=== PATIENT | female | born 1935 | race Caucasian/White ===

== ENCOUNTER 2017-09-07 08:49 | Emergency (ER) | payer MEDICARE, BC ==
[2017-09-07] MEDS ORDERED: HYDROcodone/Acetaminophen 5/325 mg Tablet ONE (09:35)
[2017-09-07] MEDS ORDERED: Donepezil HCl 5 MG TAB PO ONE (10:00)
--- NOTE | 2017-09-07 10:35 | RAD ---
RIGHT FEMUR 2 VIEWS: Date: 09/07/17 HISTORY: 82-year-old female with pain following a fall yesterday. FINDINGS: Bone demineralization. Right hip joint arthrosis. Right knee arthrosis. No acute femoral fracture. IMPRESSION: No acute femoral fracture. POS: [facility]
--- NOTE | 2017-09-07 10:40 | RAD ---
FRONTAL RADIOGRAPH OF PELVIS: Date: 09/07/17 COMPARISON: 10/21/16. HISTORY: Fall yesterday, pain and bruising. FINDINGS: The patient is rotated to the left, limiting assessment of the sacrum and sacroiliac joints. Fractur e deformities are noted involving the region of the superior and inferior pubic rami on the right me dially, as seen on the 10/21/16 exam. There is callus formation suggesting healing, but fracture alisson es are still seen, consistent with incomplete healing since the 10/21/16 exam. No definite acute fra cture seen. IMPRESSION: Healing fractures within the right hemipelvis as detailed above. No discrete acute fracture is seen on this exam. If symptoms persist and there is clinical concern for radio-occult fracture, cross-sec tional imaging advised. POS: [facility]
== END 2017-09-07 11:24 | disposition home or self-care (01) ==
LOC: ERS 08:49
DX: S30.0XXA Contusion of lower back and pelvis, initial encounter (principal); M80.08XA Age-related osteoporosis with current pathological fracture, vertebra(e), initial encounter for fracture; F02.81 Dementia in other diseases classified elsewhere, unspecified severity, with behavioral disturbance; G30.9 Alzheimer's disease, unspecified; F32.9 Major depressive disorder, single episode, unspecified; G47.00 Insomnia, unspecified; J45.909 Unspecified asthma, uncomplicated; F41.9 Anxiety disorder, unspecified; Z79.82 Long term (current) use of aspirin; Z79.899 Other long term (current) drug therapy; W01.0XXA Fall on same level from slipping, tripping and stumbling without subsequent striking against object, initial encounter
CPT/HCPCS: 72170

== ENCOUNTER 2017-09-28 15:25 | Outpatient (CLI) | payer MEDICARE, BC ==
--- NOTE | 2017-09-28 16:24 | MRI ---
MRI BRAIN WITHOUT IV CONTRAST: Date: 09/28/17 HISTORY: Alzheimer's dementia. FINDINGS: There are scattered patchy and confluent areas of [id number] FLAIR and T2-weighted signal intensity s een in the periventricular and subcortical white matter which are nonspecific but likely reflective o f severe chronic small vessel ischemic changes. There is no evidence of an acute infarction. There is diffuse cerebral volume loss. Septum pellucidum and third ventricle are on the midline. The ventricular system is normal in size, shape, and position for the degree of sulcal atrophy. Appropriate flow-voids are demonstrated at the base of the brain. [place] lenses are absent. Paranasal sinuses are clear. There is a bilobed low signal intensity mass seen within the dermis in the right frontoparietal regio n near the vertex which overlies the region of the coronal suture. This may represent a sebaceous cys t given location and there is also a punctate low signal intensity focus within this bilobed mass whi ch may represent a calcification. IMPRESSION: 1. No acute intracranial abnormality is demonstrated. 2. Moderate to severe chronic small vessel ischemic changes. 3. Diffuse cerebral volume loss. 4. Bilobed mass in the dermis just above the level of the coronal suture on the right which may repr esent a sebaceous cyst. Correlation with physical examination is recommended. POS: [facility]
== END 2017-09-28 15:26 | disposition home or self-care (01) ==
LOC: MRI 15:25
PROVIDERS: ATTEND Psychiatry & Neurology Neurology
DX: G30.9 Alzheimer's disease, unspecified (principal); F02.80 Dementia in other diseases classified elsewhere, unspecified severity, without behavioral disturbance, psychotic disturbance, mood disturbance, and anxiety; R22.0 Localized swelling, mass and lump, head
CPT/HCPCS: 70551

== ENCOUNTER 2017-10-06 11:59 | Outpatient (CLI) | payer MEDICARE, BC ==
--- NOTE | 2017-10-06 16:49 | SJPRAD ---
RADIOGRAPH RIGHT RIBS 4 VIEWS: Date: 10/06/17 HISTORY: 82-year-old female with persistent post-traumatic right rib pain after fall 2 weeks ago. FINDINGS: There is diffuse osteopenia. Severe levoscoliosis of lumbar spine and compensatory dextroscoliosis of lower thoracic spine. Loss of height of two levels of the spine at the thoracolumbar junction, incom pletely imaged, and of indeterminate age. These are probably old, and the appearance is similar morgan red to previous lumbar spine radiograph of 07/16/17. Mildly displaced fractures of the lateral aspects of the right 5th, 6th, 7th, and 8th ribs. Very angu lated fractures of distal anterolateral aspects of right 8th, 9th, and 10th ribs. Diffuse osteopenia. IMPRESSION: 1. Subacute, traumatic, displaced, multiple right rib fractures. 2. S-shaped somewhat severe scoliosis. 3. Compression fractures of two vertebral bodies at the thoracolumbar junction, probably old. POS: [facility]
== END 2017-10-06 12:00 | disposition home or self-care (01) ==
LOC: MWLC RAD 11:59
PROVIDERS: ATTEND Family Medicine
DX: R07.9 Chest pain, unspecified (principal); M41.9 Scoliosis, unspecified; M48.56XD Collapsed vertebra, not elsewhere classified, lumbar region, subsequent encounter for fracture with routine healing

== ENCOUNTER 2018-07-06 13:12 | Outpatient (CLI) | payer MEDICARE, BC ==
--- NOTE | 2018-07-06 14:03 | RAD ---
PA AND LATERAL CHEST RADIOGRAPH: Date: 07-06-18 History: Dyspnea. Comparison: 05-25-17 FINDINGS: Again noted is mild elevation of the left hemidiaphragm with prominent gaseous distention of loops of bowel beneath the left hemidiaphragm. Small hiatal hernia is present. The cardiac silhouette and pul monary vasculature are within normal limits. Remote right sided rib fractures are present. [place] scr ews overlie the left proximal humerus. There is left glenohumeral osteoarthropathy present. Prominent degenerative changes are seen in the spine and there is S-shaped scoliotic curvature of the thoracol umbar spine with prominent degenerative changes present. IMPRESSION: 1. Prominent gaseous distention of loops of bowel within the upper abdomen with elevation left hemidi aphragm. 2. Small hiatal hernia. 3. No acute cardiopulmonary process. 4. Remote right sided rib fractures. 5. S-shaped scoliotic curvature of the thoracolumbar spine with prominent degenerative changes presen t. POS: [facility]
== END 2018-07-06 13:13 | disposition home or self-care (01) ==
LOC: RAD 13:12
PROVIDERS: ATTEND Internal Medicine Pulmonary Disease
DX: R06.00 Dyspnea, unspecified (principal); J98.6 Disorders of diaphragm; K63.89 Other specified diseases of intestine; K44.9 Diaphragmatic hernia without obstruction or gangrene; M41.85 Other forms of scoliosis, thoracolumbar region; M47.895 Other spondylosis, thoracolumbar region
CPT/HCPCS: 71046

== ENCOUNTER 2019-04-11 18:04 | Inpatient (IN) | payer MEDICARE, BC ==
[2019-04-11 18:44] LABS: #Monocytes 0.5 thou/uL (0.11-0.59); #Neutrophils 9.3 thou/uL (1.40-6.50); %Basophils 0.3 % (0.0-1.0); %Eosinophils 0.3 % (0.0-10.0); %Lymphocytes 8.9 % (21.0-51.0); %Monocytes 4.4 % (0.0-10.0); %Neutrophils 86.1 % (42.0-75.0); Hemoglobin 11.8 g/dL (12.0-16.0); Mean Corpuscular HGB CONC 31.1 g/dL (32.0-36.0); Mean Corpuscular Hemoglobin 27.3 pg (27.0-31.0); Mean Corpuscular Volume 87.8 fL (78.0-98.0); Mean Platelet Volume 8.3 fL (7.4-10.4); Platelet Count 203 thou/uL (130-400); RBC Distribution Width 14.1 % (11.5-14.5); Red Blood Cell (RBC) Count 4.33 mill/uL (4.20-5.40); White Blood Cell (WBC) Count 10.8 thou/uL (4.8-10.8)
[2019-04-11 19:06] LABS: ALT (SGPT) 11 U/L (8-55); AST (SGOT) 16 U/L (5-34); Albumin 3.8 g/dL (3.4-4.8); Alkaline Phosphatase 79 U/L (40-150); Anion Gap 13 mmol/L (10-20); BUN (Urea Nitrogen) 14 mg/dL (9.8-20.1); Bilirubin, Total 0.3 mg/dL (0.2-1.2); CK (CPK) 47 U/L (29-168); Calc. Creatinine Clearance 0 mL/min (70-130); Calcium 9.3 mg/dL (7.8-10.44); Carbon Dioxide 25 mmol/L (23-31); Chloride 106 mmol/L (98-107); Estimated GFR-MDRD 71; Globulin 3.2 g/dL (2.4-3.5); Glucose 104 mg/dL (83-110); Potassium 3.7 mmol/L (3.5-5.1); Sodium 140 mmol/L (136-145)
[2019-04-11 19:16] LABS: Bilirubin Negative (Negative); Blood, Urine Moderate (Negative); Clarity TURBID (Clear); Glucose, Urine (Dipstick) Negative (Negative); Leukocyte Large (Negative); Nitrite Positive (Negative); Protein, Urine (Dipstick) 100 mg/dL (Neg-Trace); Specific Gravity, Urine 1.014 (1.002-1.036); pH, Urine 6.5 (5.0-9.0)
--- NOTE | 2019-04-11 19:25 | RAD ---
EXAM: CHEST ONE VIEW HISTORY: Cough COMPARISON: 07/06/2018 FINDINGS: The cardiac silhouette and pulmonary vasculature is within normal limits. The lungs are clear. There is mild focal eventration of the right hemidiaphragm. Hiatal hernia was present on prior study, but this is not well delineated on today's exam. There is gas beneath the hemidiaphragm in the epigastric region. This is most likely related to gas within a loop of bowel. However, if the patient has abdominal tenderness, an upright PA chest x-ray is recommended for further evaluation of this finding . Osteopenia is present. Postsurgical changes left shoulder are again seen. Each humeral head does appear to be high riding. Chronic rotator cuff tears are a possibility. Scoliosis thoracolumbar spine is present. IMPRESSION: 1. No acute cardiopulmonary process. 2. Gas beneath the hemidiaphragm within the central upper abdomen probably related to gas within a lo op of bowel. However, if the patient has abdominal tenderness or findings suggestive of an acute abdomen, upright PA chest x-ray is recommended for further evaluation. 3. Osteopenia.
[2019-04-11 19:31] LABS: Bacteria/HPF 2+ HPF (None Seen); Hyaline Casts/LPF NONE SEEN LPF (0-3 Hyaline)
[2019-04-11] MEDS ORDERED: cefTRIAXone\\ROCEPHIN 1 GM VIAL ONE (19:37)
[2019-04-11] MEDS ORDERED: Sodium Chloride 0.9% 100 ML ONE (20:24)
[2019-04-11 22:13] VITALS: BMI 23.3
[2019-04-12 00:57] LABS: Troponin I 0.052 ng/mL (< 0.028)
[2019-04-12 04:36] LABS: Troponin I 0.047 ng/mL (< 0.028)
[2019-04-12] MEDS ORDERED: Acetaminophen 325 MG TAB PO PRN (04:54)
[2019-04-12] MEDS ORDERED: cloNIDine 0.1 MG TAB PO PRN (04:54)
[2019-04-12] MEDS ORDERED: Ondansetron PF 4 MG/2 ML Vial IVP PRN (04:54)
[2019-04-12] MEDS ORDERED: hydrALAZINE 20 MG/ML VIAL SLOW IVP PRN (04:54)
[2019-04-12] MEDS ORDERED: Ondansetron ODT 4 MG TAB PO PRN (04:54)
[2019-04-12] MEDS ORDERED: Polyethylene Glycol 3350 17 GM Packet PO PRN (04:55)
[2019-04-12] MEDS ORDERED: Meloxicam 15 MG TAB PO PRN (04:55)
[2019-04-12] MEDS ORDERED: Senokot 8.6 MG TAB PO PRN (04:55)
[2019-04-12] MEDS ORDERED: PROVENTIL INHALER 6.7 G (200 INHALATIONS) INH PRN (04:55)
[2019-04-12] MEDS ORDERED: Guaifenesin DM 100-10/5 ML UDCUP PO PRN (05:02)
--- NOTE | 2019-04-12 05:31 | HP ---
CHIEF COMPLAINT: Shortness of breath and fever. HISTORY OF PRESENT ILLNESS: The history of present illness is very limited as the patient has advanced dementia, and there is no family at the bedside. Ms. Gillespie resides at the [facility] and she was sent over by the staff due to concerns for cough and fever. She also appeared to be short of breath and it appeared as if her oxygen saturations had been lower than usual. When she was evaluated in the ER, a chest x-ray was done, which did not show any significant infiltrates; however, urinalysis showed findings consistent with urinary tract infection and she was also found to be febrile with a temperature of 101.8, and she is being admitted for further treatment. The patient is currently lying in bed. She looks comfortable. She is awake and talking. She has advanced dementia and cannot tell me any additional history. She does say that she is not in pain. She also tells me that she does not feel short of breath, but she is noted to be occasionally coughing with a productive-sounding cough. REVIEW OF SYSTEMS: Unobtainable due to advanced dementia. PAST MEDICAL HISTORY: The previous history is taken from consultation by Dr. Tyson on November 20, 2015, and includes degenerative joint disease, restless legs syndrome, hypertension, osteoporosis, and Alzheimer's dementia. PAST SURGICAL HISTORY: She has had a tonsillectomy, appendectomy, hiatal hernia, carotid endarterectomy, and rotator cuff repair. She is status post left total hip replacement. ALLERGIES: TO WARFARIN. FAMILY HISTORY: Unknown. SOCIAL HISTORY: She is a nonsmoker and nondrinker. She resides at the [facility]. We will need to verify her code status. CURRENT MEDICATIONS: Her current medications are taken from the hospital records and include; 1. Tylenol 1000 mg q.6. 2. Albuterol inhaler 2 puffs q.6 as needed. 3. Aspirin 81 mg daily. 4. Calcium phosphate plus vitamin D 1 tablet daily. 5. Klonopin 0.5 mg at bedtime. 6. Escitalopram 10 mg daily. 7. Gabapentin 200 mg at bedtime. 8. Loperamide 2 mg as needed. 9. Melatonin 3 mg at bedtime. 10. Meloxicam 15 mg daily. 11. Namenda 10 mg twice daily. 12. Mirtazapine 15 mg at bedtime. 13. Oxybutynin 5 in the morning and 10 mg in the evening. 14. Pantoprazole 40 mg p.o. at bedtime. 15. MiraLAX 17 g daily. 16. Pramipexole 0.5 mg daily and one in the evening. 17. Dextromethorphan 5 mg q.6. 18. Senna 8.6 mg daily. PHYSICAL EXAMINATION: GENERAL: She is alert, but disoriented. She appears in no acute distress. VITAL SIGNS: Blood pressure was 165/82, heart rate 96, respiratory rate of 20, temperature was 100, and O2 sats 97% on room air. HEENT: Pupils are equal, round, and reactive to light. Extraocular muscles are intact. Her sclerae are anicteric. Throat, no erythema, no exudates. NECK: No adenopathy, no bruits. LUNGS: She has bilateral rales in both lung verdin. No wheezing. No rhonchi. CARDIOVASCULAR: She has a normal S1 and S2. There was no S3 or S4. No murmurs, clicks or rubs. ABDOMEN: Soft, it is nontender and nondistended. Positive for bowel sounds. There is no rebound, no guarding. No organomegaly. EXTREMITIES: There is no edema. NEUROLOGICAL: The exam is nonfocal. SKIN AND INTEGUMENT: There are no skin changes. No rash. LABORATORY DATA: Sodium 140, potassium 3.7, chloride is 106, CO2 is 25, BUN of 14, creatinine 0.78, glucose is 104. Troponin initially 0.28. White blood cell count is 10.8, hemoglobin 11.8, hematocrit is 38, platelet count is 200. Urinalysis shows nitrite positive, positive blood, large leukocyte esterase, 2+ bacteria. She had a chest x-ray showing no evidence of cardiomegaly. There was no infiltrates, no effusions. ASSESSMENT: This is an 83-year-old female, who was sent over by the [facility] due to; 1. Fever, cough, and hypoxia. Her chest x-ray was not revealing of any infiltrate; however, it could be that she may be mildly volume depleted and the infiltrate is not yet evident radiographically. At least she has a bronchitis as she does have a productive-sounding cough. She will be admitted and started on IV antibiotics. We will place her on azithromycin as well as Rocephin. 2. Urinary tract infection. This will be treated with Rocephin IV and await urine culture results. 3. Hypertension. Clarify and restart her home medications as well as p.r.n. medications as needed for blood pressure. 4. Dementia. This is fairly advanced. We will continue Namenda. 5. She will be placed on deep venous thrombosis and gastrointestinal prophylaxis. Job ID: [id number]
[2019-04-12] MEDS: Azithromycin 500 MG in Sodium Chloride 0.9% 250 ML 250 ML IVPB SCH (05:34)
[2019-04-12] MEDS: Pramipexole Di-HCl 0.25 MG TAB PO SCH (07:43)
[2019-04-12] MEDS: Famotidine 20 MG TAB PO SCH ×2 (07:45→20:06)
[2019-04-12] MEDS: Escitalopram Oxalate 10 mg Tablet PO SCH (07:45)
[2019-04-12] MEDS: Oxybutynin 5 MG TAB PO SCH ×2 (07:46→20:06)
[2019-04-12] MEDS: Calcium Carbonate + Vit D 1 TAB PO SCH (07:46)
[2019-04-12] MEDS: Aspirin Chewable 81 MG TAB PO SCH (07:46)
[2019-04-12 08:22] LABS: Troponin I 0.052 ng/mL (< 0.028)
[2019-04-12] MEDS ORDERED: Enoxaparin Sodium 30 MG/0.3 ML SYRINGE SC SCH (09:00)
--- NOTE | 2019-04-12 16:48 | PDOC.PN ---
- Subjective Encounter Start Date: 04/12/19 Encounter Start Time: 16:46 83 y/o female, senior living resident with demantia admitted due to worsening cough and fever and was also found to have UTI. Feeling better. Still coughing but denied sputum production. - Objective Vital Signs & Weight: Vital Signs (12 hours) Temp Pulse Resp BP Pulse Ox 04/12/19 11:41 98.8 F 89 20 161/92 H 94 L 04/12/19 08:00 97.9 F 88 18 151/80 H 94 L 04/12/19 04:54 98.8 F 92 18 168/81 H 96 Weight Weight 140 lb 8 oz I&O: 04/11/19 04/12/19 04/13/19 06:59 06:59 06:59 Intake Total 450 Balance 450 Result Diagrams: 04/11/19 18:30 04/11/19 18:30 Phys Exam - Physical Examination Constitutional: NAD afebrile HEENT: PERRLA, moist MMs Neck: no JVD, supple Respiratory: no wheezing, no rhonchi fair air entry bilaterally with some left base crackles. Cardiovascular: RRR Gastrointestinal: soft, non-tender, no distention, positive bowel sounds Musculoskeletal: no edema, pulses present Neurological: non-focal, moves all 4 limbs awake and conversational. memory lapses noted Dx/Plan (1) UTI (urinary tract infection) Status: Acute (2) Acute bronchitis Code(s): J20.9 - ACUTE BRONCHITIS, UNSPECIFIED Status: Acute (3) Dementia Code(s): F03.90 - UNSPECIFIED DEMENTIA WITHOUT BEHAVIORAL DISTURBANCE Status: Acute (4) Fever Code(s): R50.9 - FEVER, UNSPECIFIED Status: Acute (5) Demand ischemia of myocardium Code(s): I24.8 - OTHER FORMS OF ACUTE ISCHEMIC HEART DISEASE Status: Acute (6) Hypertension Code(s): I10 - ESSENTIAL (PRIMARY) HYPERTENSION Status: Acute - Plan Start mucinex -: Continue antibiotic therapy -: Await culture results -: Diet as tolerated. * .
[2019-04-12] MEDS: cefTRIAXone\\ROCEPHIN 1 GM in Sodium Chloride 0.9% 100 ML IVPB SCH (20:05)
[2019-04-12] MEDS: clonazePAM 0.5 MG TAB PO SCH (20:05)
[2019-04-12] MEDS: Gabapentin 100 MG CAP PO SCH (20:06)
[2019-04-12] MEDS: Melatonin 3 MG TAB PO SCH (20:06)
[2019-04-12] MEDS: guaiFENesin ER 600 MG TAB PO SCH (20:06)
[2019-04-12] MEDS: Pramipexole Di-HCl 1 MG TAB PO SCH (20:06)
[2019-04-12] MEDS: Mirtazapine 15 MG TAB PO SCH (20:07)
[2019-04-13] MEDS: Azithromycin 500 MG in Sodium Chloride 0.9% 250 ML 250 ML IVPB SCH (05:15)
[2019-04-13 06:13] LABS: #Eosinphils 0.2 thou/uL (0.0-0.7); #Lymphocytes 1.4 thou/uL (1.20-3.40); #Monocytes 0.6 thou/uL (0.11-0.59); #Neutrophils 3.5 thou/uL (1.40-6.50); %Basophils 0.6 % (0.0-1.0); %Eosinophils 3.5 % (0.0-10.0); %Lymphocytes 23.7 % (21.0-51.0); %Neutrophils 61.1 % (42.0-75.0); Hemoglobin 10.1 g/dL (12.0-16.0); Mean Corpuscular HGB CONC 31.1 g/dL (32.0-36.0); Mean Corpuscular Hemoglobin 27.4 pg (27.0-31.0); Mean Corpuscular Volume 88.1 fL (78.0-98.0); Mean Platelet Volume 8.4 fL (7.4-10.4); Platelet Count 179 thou/uL (130-400); RBC Distribution Width 13.9 % (11.5-14.5); Red Blood Cell (RBC) Count 3.69 mill/uL (4.20-5.40); White Blood Cell (WBC) Count 5.8 thou/uL (4.8-10.8)
[2019-04-13 06:31] LABS: Anion Gap 8 mmol/L (10-20); BUN (Urea Nitrogen) 12 mg/dL (9.8-20.1); Calc. Creatinine Clearance 63 mL/min (70-130); Calcium 8.4 mg/dL (7.8-10.44); Carbon Dioxide 28 mmol/L (23-31); Chloride 105 mmol/L (98-107); Estimated GFR-MDRD 80; Glucose 82 mg/dL (83-110); Potassium 3.2 mmol/L (3.5-5.1); Sodium 138 mmol/L (136-145)
[2019-04-13] MEDS: Oxybutynin 5 MG TAB PO SCH ×2 (08:09→19:59)
[2019-04-13] MEDS: Enoxaparin Sodium 40 MG/0.4 ML SYRINGE SC SCH (08:09)
[2019-04-13] MEDS: Famotidine 20 MG TAB PO SCH ×2 (08:09→19:58)
[2019-04-13] MEDS: Pramipexole Di-HCl 0.25 MG TAB PO SCH (08:09)
[2019-04-13] MEDS: Aspirin Chewable 81 MG TAB PO SCH (08:10)
[2019-04-13] MEDS: Calcium Carbonate + Vit D 1 TAB PO SCH (08:10)
[2019-04-13] MEDS: guaiFENesin ER 600 MG TAB PO SCH ×2 (08:10→19:58)
[2019-04-13] MEDS: Escitalopram Oxalate 10 mg Tablet PO SCH (08:10)
--- NOTE | 2019-04-13 08:56 | PDOC.PN ---
- Subjective Encounter Start Date: 04/13/19 Encounter Start Time: 14:00 Subjective: Patient with improvement in cough. No fever. No abdominal pain. - Objective MAR Reviewed: Yes Vital Signs & Weight: Vital Signs (12 hours) Temp Pulse Resp BP Pulse Ox 04/13/19 07:54 98.2 F 89 16 156/90 H 92 L 04/13/19 04:00 97.8 F 84 18 170/90 H 94 L 04/13/19 00:00 98.0 F 82 18 158/82 H 95 Weight Weight 140 lb 8 oz I&O: 04/12/19 04/13/19 04/14/19 06:59 06:59 06:59 Intake Total 1050 Balance 1050 Result Diagrams: 04/13/19 05:29 04/13/19 05:29 Phys Exam - Physical Examination Constitutional: NAD HEENT: moist MMs Respiratory: no wheezing, no rales, no rhonchi, clear to auscultation bilateral Cardiovascular: RRR, no significant murmur Gastrointestinal: soft, non-tender, positive bowel sounds Neurological: non-focal, moves all 4 limbs Psychiatric: normal affect Dx/Plan (1) UTI (urinary tract infection) Status: Acute Comment: gram neg rods in urine, on Rocephin since 04/12/19, 1/2 gram positive rods in blood, suspect contaminent (2) Acute bronchitis Code(s): J20.9 - ACUTE BRONCHITIS, UNSPECIFIED Status: Acute Comment: on Rocephin and Azithromycin (3) Demand ischemia of myocardium Code(s): I24.8 - OTHER FORMS OF ACUTE ISCHEMIC HEART DISEASE Status: Acute Comment: stable (4) Dementia Code(s): F03.90 - UNSPECIFIED DEMENTIA WITHOUT BEHAVIORAL DISTURBANCE Status: Chronic (5) Hypertension Code(s): I10 - ESSENTIAL (PRIMARY) HYPERTENSION Status: Chronic - Plan cont current plan of care, continue antibiotics, out of bed/ambulate, DVT proph w/lovenox, DVT proph w/SCDs Possibly home tomorrow if bacteria ID back * . - Discharge Day Encounter end time: 14:15
[2019-04-13] MEDS ORDERED: Potassium Chloride 20 MEQ TAB PO SCH (09:00)
[2019-04-13] MEDS: cefTRIAXone\\ROCEPHIN 1 GM in Sodium Chloride 0.9% 100 ML IVPB SCH (19:57)
[2019-04-13] MEDS: Melatonin 3 MG TAB PO SCH (19:58)
[2019-04-13] MEDS: Gabapentin 100 MG CAP PO SCH (19:58)
[2019-04-13] MEDS: clonazePAM 0.5 MG TAB PO SCH (19:58)
[2019-04-13] MEDS: Pramipexole Di-HCl 1 MG TAB PO SCH (19:59)
[2019-04-13] MEDS: Mirtazapine 15 MG TAB PO SCH (19:59)
[2019-04-14 04:37] LABS: #Eosinphils 0.3 thou/uL (0.0-0.7); #Lymphocytes 1.4 thou/uL (1.20-3.40); #Monocytes 0.6 thou/uL (0.11-0.59); #Neutrophils 3.6 thou/uL (1.40-6.50); %Basophils 0.6 % (0.0-1.0); %Eosinophils 4.3 % (0.0-10.0); %Lymphocytes 23.8 % (21.0-51.0); %Monocytes 9.7 % (0.0-10.0); %Neutrophils 61.5 % (42.0-75.0); Hemoglobin 9.9 g/dL (12.0-16.0); Mean Corpuscular HGB CONC 31.2 g/dL (32.0-36.0); Mean Corpuscular Hemoglobin 27.3 pg (27.0-31.0); Mean Corpuscular Volume 87.6 fL (78.0-98.0); Mean Platelet Volume 8.6 fL (7.4-10.4); Platelet Count 173 thou/uL (130-400); Red Blood Cell (RBC) Count 3.64 mill/uL (4.20-5.40); White Blood Cell (WBC) Count 5.9 thou/uL (4.8-10.8)
[2019-04-14 04:58] LABS: Anion Gap 10 mmol/L (10-20); BUN (Urea Nitrogen) 14 mg/dL (9.8-20.1); Calc. Creatinine Clearance 68 mL/min (70-130); Calcium 8.3 mg/dL (7.8-10.44); Carbon Dioxide 23 mmol/L (23-31); Chloride 109 mmol/L (98-107); Estimated GFR-MDRD 87; Glucose 86 mg/dL (83-110); Potassium 3.5 mmol/L (3.5-5.1); Sodium 138 mmol/L (136-145)
[2019-04-14] MEDS: Azithromycin 250 MG TAB PO SCH (06:07)
[2019-04-14] MEDS: Famotidine 20 MG TAB PO SCH ×2 (07:48→20:00)
[2019-04-14] MEDS: guaiFENesin ER 600 MG TAB PO SCH ×2 (07:48→20:00)
[2019-04-14] MEDS: Pramipexole Di-HCl 0.25 MG TAB PO SCH (07:48)
[2019-04-14] MEDS: Oxybutynin 5 MG TAB PO SCH ×2 (07:48→20:01)
[2019-04-14] MEDS: Calcium Carbonate + Vit D 1 TAB PO SCH (07:48)
[2019-04-14] MEDS: Aspirin Chewable 81 MG TAB PO SCH (07:48)
[2019-04-14] MEDS: Enoxaparin Sodium 40 MG/0.4 ML SYRINGE SC SCH (07:48)
[2019-04-14] MEDS: Escitalopram Oxalate 10 mg Tablet PO SCH (07:49)
--- NOTE | 2019-04-14 08:04 | PDOC.PN ---
- Subjective Encounter Start Date: 04/14/19 Encounter Start Time: 11:40 Subjective: Patient feeling much better. Cough improved. No Fever. No SOB. No abdominal -: pain. - Objective MAR Reviewed: Yes Vital Signs & Weight: Vital Signs (12 hours) Temp Pulse Resp BP Pulse Ox 04/14/19 07:49 98.1 F 81 18 127/78 91 L Weight Weight 140 lb 8 oz I&O: 04/13/19 04/14/19 04/15/19 06:59 06:59 06:59 Intake Total 1050 400 Balance 1050 400 Result Diagrams: 04/14/19 04:19 04/14/19 04:19 Phys Exam - Physical Examination Constitutional: NAD HEENT: moist MMs Respiratory: no wheezing, no rales, no rhonchi, clear to auscultation bilateral Cardiovascular: RRR, no significant murmur Gastrointestinal: soft, non-tender, positive bowel sounds Neurological: non-focal Psychiatric: normal affect, A&O x 3 Dx/Plan (1) UTI (urinary tract infection) Status: Acute Comment: gram neg rods in urine, on Rocephin since 04/12/19, 2/2 gram positive rods in blood now, need to await identification to see if contaminent or not, if not obvious contaminent will need to consult ID (2) Acute bronchitis Code(s): J20.9 - ACUTE BRONCHITIS, UNSPECIFIED Status: Acute Comment: on Rocephin and Azithromycin (3) Demand ischemia of myocardium Code(s): I24.8 - OTHER FORMS OF ACUTE ISCHEMIC HEART DISEASE Status: Acute Comment: stable (4) Dementia Code(s): F03.90 - UNSPECIFIED DEMENTIA WITHOUT BEHAVIORAL DISTURBANCE Status: Chronic (5) Hypertension Code(s): I10 - ESSENTIAL (PRIMARY) HYPERTENSION Status: Chronic - Plan cont current plan of care, continue antibiotics, out of bed/ambulate, DVT proph w/lovenox, DVT proph w/SCDs * . - Discharge Day Encounter end time: 11:55
[2019-04-14] MEDS: cefTRIAXone\\ROCEPHIN 1 GM in Sodium Chloride 0.9% 100 ML IVPB SCH (19:59)
[2019-04-14] MEDS: clonazePAM 0.5 MG TAB PO SCH (20:00)
[2019-04-14] MEDS: Gabapentin 100 MG CAP PO SCH (20:00)
[2019-04-14] MEDS: Melatonin 3 MG TAB PO SCH (20:01)
[2019-04-14] MEDS: Pramipexole Di-HCl 1 MG TAB PO SCH (20:01)
[2019-04-14] MEDS: Mirtazapine 15 MG TAB PO SCH (20:01)
[2019-04-15] MEDS: Azithromycin 250 MG TAB PO SCH (04:43)
[2019-04-15] MEDS: Famotidine 20 MG TAB PO SCH (08:22)
[2019-04-15] MEDS: Calcium Carbonate + Vit D 1 TAB PO SCH (08:22)
[2019-04-15] MEDS: guaiFENesin ER 600 MG TAB PO SCH (08:22)
[2019-04-15] MEDS: Pramipexole Di-HCl 0.25 MG TAB PO SCH (08:22)
[2019-04-15] MEDS: Aspirin Chewable 81 MG TAB PO SCH (08:23)
[2019-04-15] MEDS: Oxybutynin 5 MG TAB PO SCH (08:23)
[2019-04-15] MEDS: Escitalopram Oxalate 10 mg Tablet PO SCH (08:23)
[2019-04-15] MEDS: Enoxaparin Sodium 40 MG/0.4 ML SYRINGE SC SCH (08:23)
[2019-04-15 17:15] VITALS: BP 150/82; TEMP 98.2
--- NOTE | 2019-04-16 11:22 | EKG ---
Test Reason : Blood Pressure : / mmHG Vent. Rate : 096 BPM Atrial Rate : 096 BPM P-R Int : 192 ms QRS Dur : 142 ms QT Int : 380 ms P-R-T Axes : 088 -04 125 degrees QTc Int : 480 ms Sinus rhythm Left bundle branch block Abnormal ECG Stable from prior Confirmed by TERESA WOODS, RAINE Wilhelm ([id number]), editorial writer LATONYA CERVANTES ([id number]) on 04/16/2019 11:22:00 AM Referred By: Confirmed By:RAINE MOORE MD
== END 2019-04-15 17:31 | disposition home or self-care (01) | DRG 202 ==
LOC: ERS 18:04 → T4-A 22:09
PROVIDERS: ADMIT Internal Medicine; ATTEND Internal Medicine
DX: J20.9 Acute bronchitis, unspecified (principal); N39.0 Urinary tract infection, site not specified; I24.8 Other forms of acute ischemic heart disease; M19.90 Unspecified osteoarthritis, unspecified site; G25.81 Restless legs syndrome; I10 Essential (primary) hypertension; M81.0 Age-related osteoporosis without current pathological fracture; G30.9 Alzheimer's disease, unspecified; F32.9 Major depressive disorder, single episode, unspecified; B96.89 Other specified bacterial agents as the cause of diseases classified elsewhere; G47.00 Insomnia, unspecified; F41.9 Anxiety disorder, unspecified; F02.80 Dementia in other diseases classified elsewhere, unspecified severity, without behavioral disturbance, psychotic disturbance, mood disturbance, and anxiety; Z79.899 Other long term (current) drug therapy; Z79.82 Long term (current) use of aspirin; Z88.8 Allergy status to other drugs, medicaments and biological substances
CPT/HCPCS: 36415; 51701; 71045; 80048; 80053; 81003; 81015; 82550; 83605; 83880; 84484; 85025; 87040; 87077; 87086; 87186; 93005; 96365; 96367; A4353; J0456; J0696; J1650; J3370; J3490; J7050

== ENCOUNTER 2019-10-04 06:18 | Emergency (ER) | payer MEDICARE, BC ==
[2019-10-04] MEDS ORDERED: Piperacillin/Tazobactam 4.5 GM VIAL ONE (06:58)
[2019-10-04 07:06] LABS: #Eosinphils 0.1 thou/uL (0.0-0.7); #Lymphocytes 0.9 thou/uL (1.20-3.40); #Monocytes 0.5 thou/uL (0.11-0.59); #Neutrophils 5.8 thou/uL (1.40-6.50); %Basophils 0.5 % (0.0-1.0); %Eosinophils 0.9 % (0.0-10.0); %Lymphocytes 12.8 % (21.0-51.0); %Monocytes 6.7 % (0.0-10.0); %Neutrophils 79.2 % (42.0-75.0); Mean Corpuscular HGB CONC 32.6 g/dL (32.0-36.0); Mean Corpuscular Hemoglobin 29.2 pg (27.0-31.0); Mean Corpuscular Volume 89.6 fL (78.0-98.0); Mean Platelet Volume 8.4 fL (7.4-10.4); Platelet Count 169 thou/uL (130-400); RBC Distribution Width 15.3 % (11.5-14.5); Red Blood Cell (RBC) Count 3.78 mill/uL (4.20-5.40); White Blood Cell (WBC) Count 7.3 thou/uL (4.8-10.8)
[2019-10-04 07:22] LABS: ALT (SGPT) 11 U/L (8-55); AST (SGOT) 14 U/L (5-34); Albumin 3.4 g/dL (3.4-4.8); Alkaline Phosphatase 66 U/L (40-110); Anion Gap 11 mmol/L (10-20); BUN (Urea Nitrogen) 15 mg/dL (9.8-20.1); Bilirubin, Total 0.5 mg/dL (0.2-1.2); CK (CPK) 58 U/L (29-168); Calc. Creatinine Clearance 0 mL/min (70-130); Calcium 8.2 mg/dL (7.8-10.44); Carbon Dioxide 26 mmol/L (23-31); Chloride 106 mmol/L (98-107); Estimated GFR-MDRD 74; Globulin 2.6 g/dL (2.4-3.5); Glucose 97 mg/dL (83-110); Sodium 140 mmol/L (136-145)
[2019-10-04 07:23] LABS: Potassium 2.6 mmol/L (3.5-5.1)
--- NOTE | 2019-10-04 07:36 | RAD ---
Chest AP view INDICATION: Altered mental status and sepsis COMPARISON: August 03, 2019 FINDINGS: Lungs:The lungs are clear Cardiac silhouette:The cardiomediastinal silhouette appears within normal limits. Pulmonary vasculature:Normal Pleural spaces:No pleural effusion or pneumothorax is demonstrated. Upper abdomen:No abnormality seen. Osseous structures: No acute osseous abnormality. Additional findings:None. IMPRESSION: No acute cardiopulmonary abnormality.
[2019-10-04 07:45] LABS: Bacteria/HPF 3+ HPF (None Seen); Bilirubin Negative (Negative); Blood, Urine 1+ (Negative); Clarity Turbid (Clear); Glucose, Urine (Dipstick) Normal (Negative); Leukocyte 500 Leu/uL (Negative); Nitrite Negative (Negative); Protein, Urine (Dipstick) 20 mg/dL (Neg-Trace); Squamous Epithelial None Seen HPF (0-3); Urobilinogen Normal mg/dL (Less than 2); WBC/HPF Greater than 50 HPF (0-3)
[2019-10-04 07:57] LABS: CKMB 1.2 ng/mL (0-6.6)
[2019-10-04] MEDS ORDERED: cefTRIAXone\\ROCEPHIN 2 GM VIAL ONE (07:59)
[2019-10-04] MEDS ORDERED: Potassium Chloride 20 MEQ TAB ONE (07:59)
--- NOTE | 2019-10-04 09:01 | CT ---
CT abdomen and pelvis with IV contrast HISTORY: Abdominal pain. COMPARISON: 05/05/2011. FINDINGS: Chronic appearing interstitial thickening changes at the lung bases with small focus of per ipheral wedge-shaped opacity at the lateral aspect of the left lung base. Nonmass-like. Old bilateral lower rib fractures. Chronic appearing compression of the L1 vertebral body. Severe degener ative changes lumbar spine with multifocal central canal stenosis. Small to moderate-sized hiatal hernia and gastroesophageal reflux. At the inferior pole of the left k idney is a nonobstructing lobular 1.5 cm calculus. There is gaseous distention of the colon. Fluid and gaseous distention of the rectum up to 10.4 cm wi th mild relative thickening of the rectal wall and minimal stranding in the adjacent fat. Urinary bladder is incompletely distended. Prominent calcification throughout the arterial structures. Old healed fracture of the upper sacrum. Ununited fractures of the medial aspect of the right pubic rami. IMPRESSION: Fluid and gaseous distention of the rectum with mild relative wall thickening. Consider s tercoral proctitis. Hiatal hernia with gastroesophageal reflux. Atherosclerosis. Nonobstructing 1.5 cm left renal calculus.
[2019-10-04] MEDS ORDERED: Iopamidol 370 76% 100 ML VIAL ONE (12:46)
--- NOTE | 2019-10-07 16:14 | EKG ---
Test Reason : Blood Pressure : / mmHG Vent. Rate : 106 BPM Atrial Rate : 106 BPM P-R Int : 158 ms QRS Dur : 148 ms QT Int : 390 ms P-R-T Axes : 088 -11 150 degrees QTc Int : 518 ms Sinus tachycardia Left bundle branch block Abnormal ECG Confirmed by ANNETTE WOODS, MAMIE ([id number]), sports editor SANTIAGO PAREDES ([id number]) on 10/07/2019 4:12:59 PM Referred By: Confirmed By:MAMIE BRYANT MD
== END 2019-10-04 11:15 | disposition home or self-care (01) ==
LOC: ERS 06:18
DX: N39.0 Urinary tract infection, site not specified (principal); K62.89 Other specified diseases of anus and rectum; I10 Essential (primary) hypertension; G47.00 Insomnia, unspecified; M81.0 Age-related osteoporosis without current pathological fracture; F41.9 Anxiety disorder, unspecified; F32.9 Major depressive disorder, single episode, unspecified; Z79.82 Long term (current) use of aspirin; Z79.899 Other long term (current) drug therapy
CPT/HCPCS: 36415; 51701; 71045; 74177; 80053; 81003; 81015; 82140; 82550; 82553; 83605; 83690; 83880; 84484; 85025; 87040; 87077; 87086; 87186; 93005; 96365; 96367; A4353; J0696; J2543; Q9967

== ENCOUNTER 2020-01-28 22:58 | Emergency (ER) | payer MEDICARE, BC ==
[2020-01-28] MEDS ORDERED: Adacel (T-DAP) 0.5 ML SYRINGE ONE (23:44)
--- NOTE | 2020-01-28 23:49 | CT ---
EXAM: CT brain without contrast HISTORY: Fall with head trauma COMPARISON: None TECHNIQUE: Multiple contiguous axial images were obtained and a CT of the brain without contrast. FINDINGS: This exam is limited secondary to motion artifact. There are scattered hypodensities in the subcortical and periventricular white matter consistent with small vessel ischemic disease. There is no evidence of hydrocephalus, intracranial hemorrhage, or extra-axial fluid collection. The calvarium and overlying soft tissues are unremarkable. The visualized paranasal sinuses and masto id air cells are well aerated. IMPRESSION: No evidence of acute intracranial abnormality
== END 2020-01-29 00:31 | disposition home or self-care (01) ==
LOC: ERS 22:58
DX: S01.01XA Laceration without foreign body of scalp, initial encounter (principal); I11.0 Hypertensive heart disease with heart failure; I50.9 Heart failure, unspecified; K21.9 Gastro-esophageal reflux disease without esophagitis; M81.0 Age-related osteoporosis without current pathological fracture; G47.00 Insomnia, unspecified; F41.9 Anxiety disorder, unspecified; F32.9 Major depressive disorder, single episode, unspecified; G30.9 Alzheimer's disease, unspecified; F02.81 Dementia in other diseases classified elsewhere, unspecified severity, with behavioral disturbance; Z23 Encounter for immunization; Z79.899 Other long term (current) drug therapy; W01.190A Fall on same level from slipping, tripping and stumbling with subsequent striking against furniture, initial encounter
CPT/HCPCS: 12001; 70450; 90471; 90715

== ENCOUNTER 2020-03-09 17:26 | Emergency (ER) | payer MEDICARE, BC ==
[2020-03-09] MEDS ORDERED: Morphine 4 MG/ML VIAL ONE (17:55)
[2020-03-09] MEDS ORDERED: Ondansetron ODT 4 MG TAB ONE (17:56)
[2020-03-09] MEDS ORDERED: Ondansetron PF 4 MG/2 ML Vial ONE (17:56)
--- NOTE | 2020-03-09 18:07 | RAD ---
XR Shoulder Lt 3 View STANDARD HISTORY: Injury, left shoulder pain FINDINGS: No fracture or dislocation is identified. Degenerative changes in the shoulder and neck ventricular j oints and postoperative changes of rotator cuff repair
--- NOTE | 2020-03-09 18:08 | RAD ---
XR Wrist 3 Lt View STANDARD HISTORY: Injury, left wrist pain FINDINGS: There is a mildly angulated impacted fracture of the distal radial metaphysis. There is also suggesti on of fracture of the ulnar styloid. The bones are osteopenic.
== END 2020-03-09 21:43 ==
LOC: ERS 17:26
DX: S59.202A Unspecified physeal fracture of lower end of radius, left arm, initial encounter for closed fracture (principal); S52.612A Displaced fracture of left ulna styloid process, initial encounter for closed fracture; K21.9 Gastro-esophageal reflux disease without esophagitis; I11.0 Hypertensive heart disease with heart failure; I50.9 Heart failure, unspecified; F41.9 Anxiety disorder, unspecified; M81.0 Age-related osteoporosis without current pathological fracture; F32.9 Major depressive disorder, single episode, unspecified; G30.9 Alzheimer's disease, unspecified; G47.00 Insomnia, unspecified; F02.80 Dementia in other diseases classified elsewhere, unspecified severity, without behavioral disturbance, psychotic disturbance, mood disturbance, and anxiety; W01.0XXA Fall on same level from slipping, tripping and stumbling without subsequent striking against object, initial encounter
CPT/HCPCS: 25605; 96372; J2270; J2405; Q0162